=== PATIENT | female | born 1960 | race Caucasian/White ===

== ENCOUNTER 2017-05-29 09:54 | Outpatient (CLI) | payer OTHER ==
[~2017-05-29] VITALS: Ht 167.6 cm; Wt 58.1 kg
[~2017-05-29 09:54] MED LIST: ATOR10TA PO; ATOR10TA66 PO; CARI350T PO; CEPH500C PO; ESTR0.5T PO; ESTR42.52 VG; IBUP-30 PO; IBUP1TAB14 PO; LEVO112T2 PO; LVT.112T PO; METH4TAB PO; PANT20TA2 PO; PANT40TA3 PO
[2017-05-29] MEDS ORDERED: LEVO88TA54 PO (11:15)
[2017-05-29] MEDS ORDERED: LACT1CAP62 PO (11:15)
[2017-05-29] MEDS ORDERED: SUCR1TAB PO (11:15)
[2017-05-30] MEDS ORDERED: DEXL60CA PO (14:31)
== END 2017-05-29 11:16 ==
LOC: PREOP 09:54
PROVIDERS: ATTEND Surgery
DX: Z01.818 Encounter for other preprocedural examination (principal); K21.9 Gastro-esophageal reflux disease without esophagitis

== ENCOUNTER 2017-05-30 10:57 | Day surgery (SDC) | payer BC, OTHER ==
[~2017-05-30] VITALS: Ht 167.6 cm; Wt 58.1 kg
[~2017-05-30 10:57] MED LIST changes: +LACT1CAP62 PO; +LEVO88TA54 PO; +SUCR1TAB PO
[2017-05-30 11:00] VITALS: BP 123/79
[2017-05-30] MEDS: NS IV 500 ML 500 ML IV PRN ×2 (11:10→13:20)
--- NOTE | 2017-05-30 12:13 | Conscious Sedation/ASA ---
Conscious Sedation Pre-Proced Time Reviewed: 12:00 ASA Class: 2 Airway Mallampati Classification: (nulato appropriate class) I. II. III, IV Lungs Heart ASA score ASA 1: a normal healthy patient ASA 2: a patient with a mild systemic disease (mid diabetes, controlled hypertension, obesity ASA 3: a patient with a severe systemic disease that limits activity (angina , COPD, prior Myocardial infarction) ASA 4: a patient with an incapacitating disease that is a constant threat to life (CHF, renal failure) ASA 5: a moribund patient not expected to survive 24 hrs. (ruptured aneurysm) ASA 6: a declared brain patient whose organs are being harvested. For emergent operations, add the letter E after the classification Grade 2 Sedation Plan: Analgesia, Amnesia, Plan communicated to team members, Discussed options with patient/fam, Discussed risks with patient/fam Note The patient is an appropriate candidate to undergo the planned procedure, sedation, and anesthesia. The patient immediately re-assessed prior to indication. ALIREZA PRAJAPATI MD May 30, 2017 12:13 pm
--- NOTE | 2017-05-30 12:14 | Progress Note-Pre Operative ---
Pre-Operative Progress Note H&P Reviewed The H&P was reviewed, patient examined and no changes noted. Date Seen by Provider: May 30, 2017 Time Seen by Provider: 12:00 Date H&P Reviewed: May 30, 2017 Time H&P Reviewed: 12:00 Pre-Operative Diagnosis: ALIREZA BRIGGS MD May 30, 2017 12:14 pm
[2017-05-30] MEDS ORDERED: HYDROcodone/APAP 5 MG/325 MG (LORTAB) TAB PO PRN (12:15)
[2017-05-30] MEDS ORDERED: morphine INJ 10 MG/ML 1ML (SYR OR VIAL) IV PRN (12:15)
[2017-05-30] MEDS ORDERED: ONDANSETRON 4 MG/2 ML (SDV) Z0FRAN IV PRN (12:15)
[2017-05-30] MEDS ORDERED: ACETAMINOPHEN 325 MG TABLET/CAPLET (TYLENOL) PO PRN (12:15)
[2017-05-30] MEDS ORDERED: LIDOCAINE JELLY 2% (XYLOCAINE) 5 ML TUBE ONE (13:08)
[2017-05-30] MEDS ORDERED: HURRICAINE EXT TUBE (BENZOCAINE) ONE (13:09)
[2017-05-30] MEDS ORDERED: fentaNYL INJECTION 100 MCG/2 ML AMP ONE (13:09)
[2017-05-30] MEDS ORDERED: MIDAZOLAM 2 MG/2 ML (VERSED) VIAL ONE ×3 (13:09)
[2017-05-30] MEDS ORDERED: NS IV 500 ML 500 ML ONE (13:21)
[2017-05-30] MEDS: MIDAZOLAM 2 MG/2 ML (VERSED) VIAL IVP PRN ×3 (13:28→13:36)
[2017-05-30] MEDS: fentaNYL INJECTION 100 MCG/2 ML AMP IVP PRN ×2 (13:30→13:35)
[2017-05-30 14:15] VITALS: BP 124/78
[2017-05-30] MEDS ORDERED: HURRICAINE EXT TUBE (BENZOCAINE) XX ONE (14:15)
[2017-05-30] MEDS ORDERED: LIDOCAINE JELLY 2% (XYLOCAINE) 5 ML TUBE TOP ONE (14:15)
--- NOTE | 2017-05-30 14:30 | Progress Note-Post Operative ---
Post-Operative Progess Note Surgeon (s)/Microstrategy Architect Developer (s) Surgeon ALIREZA PRAJAPATI MD Microstrategy Architect Developer: none Pre-Operative Diagnosis GERD Post-Operative Diagnosis reflux esophagitis(class B-C), small-mod HH(2.5cm), moderate gastritis. Procedure & Operative Findings Date of Procedure 05/30/17 Procedure Performed/Findings EGD with bx Anesthesia Type GET Estimated Blood Loss Estimated blood loss (mL): minimal Specimens/Packing Specimens Removed GE jxn, antrum ALIREZA PRAJAPATI MD May 30, 2017 2:30 pm
[2017-05-30] MEDS ORDERED: DEXL60CA PO (14:31)
--- NOTE | 2017-05-30 14:32 | Discharge Inst-Surgical ---
D/C Lap Instructions-KIDO New, Converted, or Re-Newed RX: RX on Chart Follow Up PRN Activity as tolerated High Fiber Diet 25g or more per day Avoid Alcohol, Caffeine, Spicy [place] and [place] foods. Drink 64 fluid oz or more of fluids per day. Symptoms to Report: Fever over 101 degree F, Nausea/Vomiting If any problems/questions: Contact your physician or go to Emergency Room ALIREZA PRAJAPATI MD May 30, 2017 2:32 pm
[2017-05-30 14:45] VITALS: BP 120/74
[2017-05-30 15:00] VITALS: BP 120/74
--- NOTE | 2017-05-30 20:00 | OPERATIVE REPORT ---
DATE OF SERVICE: 05/30/2017 ATTENDING PRIMARY CARE PHYSICIAN: Dr. Denys Cabrales. PREOPERATIVE DIAGNOSES: Epigastric pain and gastroesophageal reflux disease. POSTOPERATIVE DIAGNOSES: Reflux esophagitis between class B and C, small to moderate size hiatal hernia approximately 2 to 2.5 cm in size, and a moderate severity gastritis. PROCEDURE: EGD with biopsy. SURGEON: Dr. Prajapati. ANESTHESIA: Conscious sedation. ESTIMATED BLOOD LOSS: Minimal. FINDINGS: Reflux esophagitis between class B and C. No ulcers or strictures in this region. There was a small to moderate size hiatal hernia 2 to 2.5 cm in size, moderate severity gastritis with no formal ulcers, polyps or any neoplasms identified. Pylorus and duodenum appeared normal with no distal obstructions or ulcers. DISPOSITION: The patient tolerated the procedure well. INDICATIONS: The patient is a 57-year-old female with a two-month history of epigastric burning discomfort with associated nausea. She also has had episodes of reflux and regurgitation in the past; however, this has dramatically increased in the past few months. She also reports because of her symptoms has lost approximately 25 pounds over the past eight months. She was diagnosed with Lyme's disease this past summer and has been adjusting her thyroid medication. She did have a colonoscopy in 2008, which for the most part was normal. She also reports that because of her discomfort, she has had a decrease in appetite. DESCRIPTION OF PROCEDURE: The patient was brought to the endoscopy suite, laid in the left lateral decubitus position with head slightly elevated. After adequate IV pain and sedating medications and conscious sedation anesthesia, a mouthpiece was applied. Endoscope was placed in the mouth, visualizing the pharynx and hypopharyngeal region. Vocal cords, epiglottis and vallecula were identified and appeared to be normal. The endoscope was then gently intubated in the esophageal opening; esophagus was insufflated. The endoscope was then advanced to the first, second and third portions of the esophagus. At the level of the GE junction, a reflux esophagitis between class B and C was identified. There were no ulcers or strictures identified in this region. A biopsy was taken with forceps with visualization of good hemostasis. The endoscope was then easily advanced in the stomach and then endoscope was retroflexed, visualizing a small to moderate size hiatal hernia approximately 2 to 2.5 cm in size. There was a moderate severity gastritis, which was more diffuse and no localization. There were no formal ulcers, polyps or any neoplasms identified. A biopsy was taken of the stomach antrum for H. pylori with visualization of good hemostasis. The endoscope was then advanced to the pylorus and the first and second portions of the duodenum, which appeared normal with no distal obstructions. The endoscope was then slowly withdrawn while taking a second look and suctioning of residual air with no additional findings. The patient tolerated the procedure well. We will have her continue with medical management with the necessary lifestyle and diet accommodation including small and more frequent meals, avoidance of eating at night as well as head elevation while lying supine. She also needs to avoid caffeinated beverages, spicy, greasy and acidic foods. We will also proceed with a trial of Dexilant 60 mg daily, and have her continue with Carafate q.i.d. for another 2 weeks. Job ID: [id number] DocumentID: [id number] Dictated Date: 05/30/2017 14:03:04 Specialty Transformer Assembler Date: 05/30/2017 19:59:44 Dictated By: ALIREZA PRAJAPATI MD
== END 2017-05-30 15:05 | disposition home or self-care (01) ==
LOC: ENDO 10:57
PROVIDERS: ATTEND Surgery
DX: K21.0 Gastro-esophageal reflux disease with esophagitis (principal); K44.9 Diaphragmatic hernia without obstruction or gangrene; K29.70 Gastritis, unspecified, without bleeding; E03.9 Hypothyroidism, unspecified; A69.20 Lyme disease, unspecified; Z79.899 Other long term (current) drug therapy

== ENCOUNTER 2019-04-01 08:55 | Outpatient (CLI) | payer BC ==
[~2019-04-01] VITALS: Ht 167 cm; Wt 55.0 kg
[~2019-04-01 08:55] MED LIST changes: +DEXL60CA PO
[2019-04-01] MEDS ORDERED: LEVO112T55 PO (10:39)
[2019-04-01] MEDS ORDERED: ATOR10TA66 PO (10:39)
[2019-04-01] MEDS ORDERED: LANS30CA PO (10:39)
== END 2019-04-01 11:00 | disposition home or self-care (01) ==
LOC: PREOP 08:55
PROVIDERS: ATTEND Surgery
DX: Z01.818 Encounter for other preprocedural examination (principal)

== ENCOUNTER 2019-04-02 12:57 | Day surgery (SDC) | payer BC ==
[~2019-04-02] VITALS: Ht 167 cm; Wt 55.0 kg
[2019-04-02] VITALS (15 sets, daily range): BP systolic 82–145; BP diastolic 46–81
[~2019-04-02 12:57] MED LIST changes: -HYDR-4226 PO; -PROM25TA14 PO
[2019-04-02] MEDS ORDERED: NS IV 500 ML 500 ML ONE ×2 (13:03→15:39)
[2019-04-02] MEDS ORDERED: LIDOCAINE JELLY 2% 6 ML SYRINGE MM PRN (13:15)
[2019-04-02] MEDS ORDERED: HURRICAINE EXT TUBE (BENZOCAINE) XX PRN (13:15)
[2019-04-02] MEDS ORDERED: fentaNYL INJECTION 100 MCG/2 ML AMP IVP ONE (13:15)
[2019-04-02] MEDS: NS IV 500 ML 500 ML IV PRN ×2 (13:42→15:45)
[2019-04-02] MEDS ORDERED: MIDAZOLAM 5 MG/5 ML (VERSED) VIAL ONE ×3 (14:36→15:34)
[2019-04-02] MEDS ORDERED: LIDOCAINE JELLY 2% 6 ML SYRINGE ONE (14:37)
[2019-04-02] MEDS ORDERED: HURRICAINE EXT TUBE (BENZOCAINE) ONE (14:37)
[2019-04-02] MEDS ORDERED: fentaNYL INJECTION 100 MCG/2 ML AMP ONE ×2 (14:37)
[2019-04-02] MEDS: MIDAZOLAM 5 MG/5 ML (VERSED) VIAL IV PRN ×8 (15:08→15:28)
[2019-04-02] MEDS ORDERED: ONDANSETRON 4 MG/2 ML (SDV) Z0FRAN ONE (15:20)
[2019-04-02] MEDS ORDERED: ONDANSETRON 4 MG/2 ML (SDV) Z0FRAN IVP ONE (16:30)
--- NOTE | 2019-04-02 19:19 | OPERATIVE REPORT ---
DATE OF SERVICE: 04/02/2019 ATTENDING PRIMARY CARE PHYSICIAN: Dr. Cabrales. PREOPERATIVE DIAGNOSES: Crampy abdominal pain, nausea, reflux, screening colonoscopy, weight loss. POSTOPERATIVE DIAGNOSES: Reflux esophagitis stage II, moderate size hiatal hernia approximately 3 cm in size. Mild gastritis. No distal obstructions. Mild chronic stage II external and internal hemorrhoids. Remainder of the rectum and colon were normal. PROCEDURE: EGD with biopsy and colonoscopy. SURGEON: Alireza Prajapati MD ANESTHESIA: Conscious sedation. ESTIMATED BLOOD LOSS: Minimal. FINDINGS: Reflux esophagitis stage II, moderate size hiatal hernia approximately 3 cm in size. Mild gastritis. No distal obstructions. Mild chronic stage II external and internal hemorrhoids. Remainder of the rectum and colon were normal. DISPOSITION: The patient tolerated the procedure well. INDICATIONS: The patient is a 59-year-old female with nausea and epigastric pain. She reports that this has been going on for the past several days; however, she has had a history of this in the past. She also reports that in the past and more recently, she has had a headache; however, no change in bowel habits. During this timeframe, she does state that she lost approximately 5 pounds. She has had an EGD in 05/2017 and was found to have a hiatal hernia, approximately 2.5 cm in size. Her last colonoscopy was approximately 10 years ago as well. Since being diagnosed with Lyme's disease two years ago, she has lost approximately 25 pounds. DESCRIPTION OF PROCEDURE: The patient was brought to the endoscopy suite, laid in the left lateral decubitus position. After adequate IV pain and sedative medications and conscious sedation anesthesia, the mouthpiece was applied. The endoscope was placed in the mouth, visualizing the pharynx and hypopharyngeal region. Vocal cords, epiglottis and vallecula identified and appeared to be normal. The endoscope was then gently intubated the esophageal opening and esophagus was insufflated. The endoscope was then advanced through the first, second and third portions of the esophagus. At the level of the GE junction, a reflux esophagitis stage II identified. The gastroesophageal junction was also intrathoracic consistent with a hiatal hernia. A biopsy was taken of the GE junction with forceps. The endoscope was then advanced into the stomach and endoscope retroflexed, visualizing a moderate sized hiatal hernia approximately 3 cm in size. Mild gastritis was also noted and a biopsy was taken of the antrum to rule out H. pylori. The endoscope was then advanced to the pylorus and the first and second portion of the duodenum, which appeared normal with no distal obstructions. Under the same anesthesia, we then proceeded with the colonoscopy portion of the procedure. Digital rectal examination was performed, which revealed chronic stage II external and internal hemorrhoids, not actively edematous nor inflamed and no bleeding. Normal sphincter tone was felt and there were no palpable masses. The endoscope was then intubated into the anus and rectum was gently insufflated. The endoscope was then advanced to the valves of [place] of the rectum with no polyps or any neoplasms identified. We then proceeded through the sigmoid colon where no significant diverticulosis was identified. The endoscope was then advanced to the remainder of the descending, transverse and ascending colon to the cecum. These segments were normal. There were no polyps or any neoplasms identified throughout the colon or rectum. Endoscope was then slowly withdrawn while taking a second look and suctioning of residual air with no additional findings. The patient tolerated the procedure well. We feel that her symptoms could be related to the hiatal hernia and we will again treat her and proceed with conservative management with the necessary lifestyle and diet accommodation including small and more frequent meals, avoidance of eating at night as well as head elevation while lying supine. She states that she has taken Protonix before and that helped more with her symptoms. We will also proceed with a gallbladder workup including an u/s as well as HIDA scan. Her colonoscopy was normal and she does not have any family history of colon cancer. She may wait 10 years for her next colonoscopy. Job ID: [id number] DocumentID: [id number] Dictated Date: 04/02/2019 15:49:00 Insurance Agents Supervisor Date: 04/02/2019 19:18:27 Dictated By: ALIREZA PRAJAPATI MD MTDD
--- NOTE | 2019-04-02 21:38 | Conscious Sedation/ASA ---
Conscious Sedation Pre-Proced Time 13:00 ASA Score 2 For ASA 3 and 4: Consider anesthesia and medical clearance. Also, for patients with a history of failed moderate sedation consider anesthesia. Airway Lungs Heart ASA score ASA 1: a normal healthy patient ASA 2: a patient with a mild systemic disease (mid diabetes, controlled hypertension, obesity ASA 3: a patient with a severe systemic disease that limits activity (angina, COPD, prior Myocardial infarction) ASA 4: a patient with an incapacitating disease that is a constant threat to life (CHF, renal failure) ASA 5: a moribund patient not expected to survive 24 hrs. (ruptured aneurysm) ASA 6: a declared brain- patient whose organs are being harvested. For emergent operations, add the letter E after the classification Mallampati Classification Grade 2 Sedation Plan Analgesia, Amnesia, Plan communicated to team members, Discussed options with patient/fam, Discussed risks with patient/fam The patient is an appropriate candidate to undergo the planned procedure, sedation, and anesthesia. The patient immediately re-assessed prior to indication. ALIREZA PRAJAPATI MD Apr 02, 2019 21:38
--- NOTE | 2019-04-02 21:39 | Progress Note-Pre Operative ---
Pre-Operative Progress Note H&P Reviewed The H&P was reviewed, patient examined and no changes noted. Date Seen by Provider: Apr 02, 2019 Time Seen by Provider: 13:00 Date H&P Reviewed: Apr 02, 2019 Time H&P Reviewed: 13:00 Pre-Operative Diagnosis: GERD, nausea, abd pain, weight loss, screening colo ALIREZA PRAJAPATI MD Apr 02, 2019 21:39
--- NOTE | 2019-04-02 21:45 | Progress Note-Post Operative ---
Post-Operative Progess Note Surgeon (s)/Pet Feeder (s) Surgeon ALIREZA PRAJAPATI MD Pet Feeder: none Pre-Operative Diagnosis GERD, nausea, abd pain, weight loss, screening colo Post-Operative Diagnosis reflux esophagitis(stage 2), moderate HH(3cm), moderate gastirits. mild chronic stage 2 ext and int hemorroids. Procedure & Operative Findings Date of Procedure 04/02/19 Procedure Performed/Findings EGD with bx. Colonoscopy. Anesthesia Type cs Estimated Blood Loss Estimated blood loss (mL): minimal Specimens/Packing Specimens Removed ge jxn, antrum ALIREZA PRAJAPATI MD Apr 02, 2019 21:45
[2019-04-03] MEDS ORDERED: HYDR-4226 PO (17:08)
[2019-04-03] MEDS ORDERED: PROM25TA14 PO (17:08)
== END 2019-04-02 16:45 | disposition home or self-care (01) ==
LOC: ENDO 12:57
PROVIDERS: ATTEND Surgery
DX: K21.0 Gastro-esophageal reflux disease with esophagitis (principal); K29.50 Unspecified chronic gastritis without bleeding; K44.9 Diaphragmatic hernia without obstruction or gangrene; K64.1 Second degree hemorrhoids; K64.8 Other hemorrhoids; R63.4 Abnormal weight loss; E03.9 Hypothyroidism, unspecified; Z90.89 Acquired absence of other organs; Z79.899 Other long term (current) drug therapy; Z90.710 Acquired absence of both cervix and uterus; Z80.0 Family history of malignant neoplasm of digestive organs; Z82.49 Family history of ischemic heart disease and other diseases of the circulatory system

== ENCOUNTER → 2019-04-02 | Outpatient (CLI) | payer BC ==
[~2019-04-02] MED LIST changes: +HYDR-4226 PO; +LANS30CA PO; +LEVO112T55 PO; +PROM25TA14 PO
--- NOTE | 2019-04-02 11:51 | Diagnostic Imaging Report ---
PROCEDURE: US Gallbladder. TECHNIQUE: Multiple real-time grayscale images were obtained over the right upper quadrant in various projections. INDICATION: Right upper quadrant pain COMPARISON: There are no prior studies available for comparison. FINDINGS: There is no evidence for cholelithiasis or acute cholecystitis and the common bile duct is not dilated. The liver does not appear to be enlarged. There is no focal mass involving the liver. Spectral and color flow imaging the portal vein shows that the vein is patent and there is normal directional flow within the vein. The right kidney and pancreas were generally unremarkable. The aorta and the inferior vena cava were not well visualized. IMPRESSION: 1. There is no evidence for an acute abnormality of the right upper quadrant. 2. If clinical concern regarding an underlying abnormality of the gallbladder persists and further imaging is desired, then nuclear medicine hepatobiliary scan would be recommended. Dictated by: Dictated on workstation # [id number]
== END ==
LOC: RAD 06:31
PROVIDERS: ATTEND Surgery
DX: R10.11 Right upper quadrant pain (principal); R11.2 Nausea with vomiting, unspecified
CPT/HCPCS: 76705

== ENCOUNTER 2019-04-03 13:42 | Emergency (ER) | payer BC ==
[~2019-04-03] VITALS: Ht 167 cm; Wt 55.0 kg
[2019-04-03] MEDS ORDERED: LIDOCAINE 2% VISCOUS 15 ML UDC PO ONE (14:45)
[2019-04-03] MEDS ORDERED: ANTACID SUSP 30 ML UDC (MYLANTA) PO ONE (14:45)
[2019-04-03 14:47] LABS: BASOPHILS % (AUTO) 0 % (0-10); EOSINOPHILS % (AUTO) 0 % (0-10); HEMATOCRIT 39 % (35-52); HEMOGLOBIN 13.2 G/DL (11.5-16.0); LYMPHOCYTES # (AUTO) 1.4 X 10^3 (1.0-4.0); LYMPHOCYTES % (AUTO) 22 % (12-44); MEAN CORPUSCULAR HEMOGLOBIN 32 PG (25-34); MEAN CORPUSCULAR HGB CONC 34 G/DL (32-36); MEAN CORPUSCULAR VOLUME 94 FL (80-99); MEAN PLATELET VOLUME 9.3 FL (7.4-10.4); MONOCYTES # (AUTO) 0.6 X 10^3 (0.0-1.0); MONOCYTES % (AUTO) 9 % (0-12); NEUTROPHILS # (AUTO) 4.4 X 10^3 (1.8-7.8); NEUTROPHILS % (AUTO) 68 % (42-75); PLATELET COUNT 241 10^3/uL (130-400); RED CELL DISTRIBUTION WIDTH 11.7 % (10.0-14.5); WHITE BLOOD COUNT 6.4 10^3/uL (4.3-11.0)
--- NOTE | 2019-04-03 14:50 | ED Abdominal Pain ---
General Chief Complaint: Abdominal/GI Problems Stated Complaint: STOMACH PAIN/NOT EATING/ Nursing Triage Note: thinks she is having gallbladder issues, had a sonogram and a scope done yesterday, Dr Abdi stated to pt that he thinks she has a bad gallbladder but would not have results until friday, pt continues to have pain, nausea Sepsis Screen: No Definite Risk Source of Information: Patient Exam Limitations: No Limitations History of Present Illness Date Seen by Provider: Apr 03, 2019 Time Seen by Provider: 14:47 Initial Comments To ER per private vehicle with reports of suspected bad gallbladder. She's had some epigastric abdominal pain with early satiety nausea vomiting and pain for about the past week. She's had intermittent loose stools and had a colonoscopy and EGD yesterday which did show some mild gastritis and grade 2 reflux esophagitis. She had an unremarkable right upper quadrant abdominal ultrasound and is scheduled for a hepatobiliary scan in 2-3 weeks. Timing/Duration: 1 Week Severity/Quality: Moderate Location: Epigastric Radiation: No Radiation Associated Symptoms: No Fever/Chills; Nausea/Vomiting Allergies and Home Medications Allergies Coded Allergies: No Known Drug Allergies (Unverified , 04/01/19) Home Medications Atorvastatin Calcium 10 Mg Tablet, 10 MG PO HS, (Reported) Hydrocodone/Acetaminophen 1 Each Tablet, 1 TAB PO Q6H Prescribed by: YOSEPH PÉREZ on 04/03/191707 Lansoprazole 30 Mg Capsule.dr, 30 MG PO DAILY, (Reported) Levothyroxine Sodium 112 Mcg Tablet, 112 MCG PO DAILY, (Reported) Promethazine HCl 25 Mg Tablet, 12.5-25 MG PO Q8H PRN for NAUSEA/VOMITING Prescribed by: YOSEPH PÉREZ on 04/03/191707 Sucralfate 1 Gm Tablet, 1 GM PO QID, (Reported) Patient Home Medication List Home Medication List Reviewed: Yes Review of Systems Review of Systems Constitutional: see HPI; No chills, No fever EENTM: No Symptoms Reported Respiratory: No Symptoms Reported Cardiovascular: No Symptoms Reported Gastrointestinal: See HPI, Abdominal Pain, Nausea, Vomiting Genitourinary: No Symptoms Reported Musculoskeletal: no symptoms reported Skin: no symptoms reported Psychiatric/Neurological: No Symptoms Reported Endocrine: No Symptoms Reported Hematologic/Lymphatic: No Symptoms Reported Past Mlsxvla-Aycdwe-Dgqjly Hx Patient Social History Alcohol Use: Denies Use Recreational Drug Use: No 2nd Hand Smoke Exposure: No Recent Foreign Travel: No Contact w/Someone Who Travel: No Recent Infectious Disease Expo: No Recent Hopitalizations: No Immunizations Up To Date Tetanus Booster (TDap): Unknown Seasonal Allergies Seasonal Allergies: No Past Medical History Surgeries: Yes (KNEE SURGERY) Appendectomy, Hysterectomy, Oophorectomy, Orthopedic Respiratory: No Currently Using CPAP: No Currently Using BIPAP: No Cardiac: Yes High Cholesterol Neurological: No Reproductive Disorders: No Female Reproductive Disorders: Denies CLERICAL SUPERVISOR History: Hysterectomy Sexually Transmitted Disease: No HIV/AIDS: No Genitourinary: No Gastrointestinal: Yes (N/V) Gastroesophageal Reflux Musculoskeletal: No Endocrine: Yes Hypothyroidsim HEENT: Yes (GLASSES) Loss of Vision: Denies Hearing Impairment: Denies Cancer: No Psychosocial: No Integumentary: No Blood Disorders: No Adverse Reaction/Blood Tranf: No (N/A) Family Medical History Congenital heart disease 19 MOTHER, Onset:60 years & older Physical Exam Vital Signs Vital Signs - First Documented 04/03/19 14:19 Temp 36.9 Pulse 73 Resp 18 B/P (MAP) 146/82 (103) Pulse Ox 99 O2 Delivery Room Air Capillary Refill : Less Than 3 Seconds Height/Weight/BMI Height: 5'6.00" Weight: 128lbs. 0.0oz. 58.277831lc; 19.00 BMI Method:Stated General Appearance: WD/WN, no apparent distress Respiratory: no respiratory distress, no accessory muscle use Gastrointestinal: normal bowel sounds, soft, tenderness Extremities: normal range of motion, non-tender Neurologic/Psychiatric: alert, normal mood/affect, oriented x 3 Skin: normal color, warm/dry Progress/Results/Core Measures Results/Orders Lab Results Laboratory Tests Test 04/03/19 14:40 04/03/19 16:50 Range/Units White Blood Count 6.4 4.3-11.0 10^3/uL Red Blood Count 4.12 L 4.35-5.85 10^6/uL Hemoglobin 13.2 11.5-16.0 G/DL Hematocrit 39 35-52 % Mean Corpuscular Volume 94 80-99 FL Mean Corpuscular Hemoglobin 32 25-34 PG Mean Corpuscular Hemoglobin Concent 34 32-36 G/DL Red Cell Distribution Width 11.7 10.0-14.5 % Platelet Count 241 130-400 10^3/uL Mean Platelet Volume 9.3 7.4-10.4 FL Neutrophils (%) (Auto) 68 42-75 % Lymphocytes (%) (Auto) 22 12-44 % Monocytes (%) (Auto) 9 0-12 % Eosinophils (%) (Auto) 0 0-10 % Basophils (%) (Auto) 0 0-10 % Neutrophils # (Auto) 4.4 1.8-7.8 X 10^3 Lymphocytes # (Auto) 1.4 1.0-4.0 X 10^3 Monocytes # (Auto) 0.6 0.0-1.0 X 10^3 Eosinophils # (Auto) 0.0 0.0-0.3 10^3/uL Basophils # (Auto) 0.0 0.0-0.1 10^3/uL Sodium Level 134 L 135-145 MMOL/L Potassium Level 3.7 3.6-5.0 MMOL/L Chloride Level 102 98-107 MMOL/L Carbon Dioxide Level 23 21-32 MMOL/L Anion Gap 9 5-14 MMOL/L Blood Urea Nitrogen 7 7-18 MG/DL Creatinine 0.63 0.60-1.30 MG/DL Estimat Glomerular Filtration Rate > 60 BUN/Creatinine Ratio 11 Glucose Level 132 H 70-105 MG/DL Calcium Level 9.2 8.5-10.1 MG/DL Corrected Calcium 8.9 8.5-10.1 MG/DL Total Bilirubin 0.4 0.1-1.0 MG/DL Aspartate Amino Transf (AST/SGOT) 16 5-34 U/L Alanine Aminotransferase (ALT/SGPT) 14 0-55 U/L Alkaline Phosphatase 56 40-136 U/L Total Protein 6.9 6.4-8.2 GM/DL Albumin 4.4 3.2-4.5 GM/DL Lipase 22 8-78 U/L Urine Color STRAW Urine Clarity CLEAR Urine pH 8 5-9 Urine Specific [place] 1.015 L 1.016-1.022 Urine Protein NEGATIVE NEGATIVE Urine Glucose (UA) NEGATIVE NEGATIVE Urine Ketones NEGATIVE NEGATIVE Urine Nitrite NEGATIVE NEGATIVE Urine Bilirubin NEGATIVE NEGATIVE Urine Urobilinogen NORMAL NORMAL MG/DL Urine Leukocyte Esterase NEGATIVE NEGATIVE Urine RBC (Auto) NEGATIVE NEGATIVE Urine RBC NONE /HPF Urine WBC NONE /HPF Urine Squamous Epithelial Cells 0-2 /HPF Urine Crystals NONE /LPF Urine Bacteria NEGATIVE /HPF Urine Casts NONE /LPF Urine Mucus NEGATIVE /LPF Urine Culture Indicated NO My Orders Orders - YOSEPH PÉREZ APRN Antacid Suspension (Mylanta Suspension (04/03/19 14:45) Lidocaine 2% Viscous 15 Ml (Xylocaine Vi (04/03/19 14:45) Ns Iv 1000 Ml (Sodium Chloride 0.9%) (04/03/19 15:00) Promethazine Injection (Phenergan Injec (04/03/19 15:00) Ct Abdomen/Pelvis W (04/03/19 14:51) Medications Given in ED Current Medications Medications Dose Ordered Sig/Louie Route Start Time Stop Time Status Last Admin Dose Admin Al Hydrox/Mg Hydrox/Simethicone 30 ml ONCE ONCE PO 04/03/19 14:45 04/03/19 14:46 DC 04/03/19 14:40 30 ML Iohexol 100 ml ONCE ONCE IV 04/03/19 15:00 04/03/19 15:54 DC 04/03/19 16:07 100 ML Lidocaine HCl 15 ml ONCE ONCE PO 04/03/19 14:45 04/03/19 14:46 DC 04/03/19 14:40 15 ML Promethazine HCl 12.5 mg ONCE ONCE IVP 04/03/19 15:00 04/03/19 15:01 DC 04/03/19 15:01 12.5 MG Sodium Chloride 100 ml ONCE ONCE IV 04/03/19 15:00 04/03/19 15:54 DC 04/03/19 16:08 100 ML Vital Signs/I&O 04/03/19 14:19 Temp 36.9 Pulse 73 Resp 18 B/P (MAP) 146/82 (103) Pulse Ox 99 O2 Delivery Room Air Blood Pressure Mean: 103 Diagnostic Imaging Diagonstic Imaging: CT Comments NAME: JHONATAN CORRAL [facility] REC#: [id number] PT STATUS: REG ER : 1960 PHYSICIAN: YOSEPH PÉREZ APRN ADMIT DATE: 04/03/19/ER Draft Date of Exam:04/03/19 CT ABDOMEN/PELVIS W PROCEDURE: CT abdomen and pelvis with contrast. TECHNIQUE: Multiple contiguous axial images were obtained through the abdomen and pelvis after administration of intravenous contrast. Auto Exposure Controls were utilized during the CT exam to meet ALARA standards for radiation dose reduction. INDICATION: Upper abdominal pain with nausea for one week. COMPARISON: Gallbladder ultrasound, 04/02/2019. DISCUSSION: The lung bases are well-aerated. Normal heart size. No pleural or pericardial fluid. The gallbladder is contracted. The liver, stomach, spleen, pancreas and adrenal glands are unremarkable. Benign-appearing 3.5 cm cyst is present within the left kidney. No hydronephrosis or solid renal mass. The aorta is normal in caliber. The uterus is surgically absent. Urinary bladder is unremarkable. No evidence for appendicitis. The large and small bowel loops appear within normal limits. No ascites or pathologically enlarged lymph nodes are identified. No osseous abnormality. IMPRESSION: No acute abnormality identified within either the abdomen or pelvis. Dictated on workstation # [id number] Dict: 04/03/19 1617 Trans: 04/03/19 1620 PJE [id number] Interpreted by: MISTI BRANCH MD Electronically signed by: Departure Communication (Admissions) After the GI cocktail she no longer has a sensation of epigastric fullness, no epigastric pain and the nausea is still somewhat present but overall improved. Impression Primary Impression: Gastritis Qualified Codes: K29.00 - Acute gastritis without bleeding Additional Impression: Hiatal hernia Disposition: HOME, SELF-CARE Condition: Stable Departure-Patient Inst. Decision time for Depature: 16:23 Referrals: VENESSA CHAPIN MD (PCP/Family) Primary Care Physician Patient Instructions: Hiatal Hernia Add. Discharge Instructions: 1. Return to ER for any concerns 2. Follow-up with your doctor 3. All discharge instructions reviewed with patient and/or family. Voiced understanding. Scripts Hydrocodone/Acetaminophen ([place] 5-325 Tablet) 1 Each Tablet 1 TAB PO Q6H for Pain MDD 10 TABS for 7 Days, #10 TAB Prov: YOSEPH PÉREZ APRN 04/03/19 Promethazine HCl (Promethazine Tablet) 25 Mg Tablet 12.5-25 MG PO Q8H PRN for NAUSEA/VOMITING, #14 TAB 0 Refills Prov: YOSEPH PÉREZ APRN 04/03/19 Copy Copies To 1: ALIREZA PRAJAPATI MD, PETER J APRN Apr 03, 2019 14:50
[2019-04-03] MEDS ORDERED: PROMETHAZINE INJ 25 MG/ML (PHENERGAN) AMP IVP ONE (15:00)
[2019-04-03] MEDS ORDERED: IOHEXOL 350 MG/ML 100 ML (OMNIPAQUE 350) VIAL IV ONE (15:00)
[2019-04-03] MEDS ORDERED: HOLD METFORMIN - RECEIVED CONTRAST 20 ML VIAL IV SCH (15:00)
[2019-04-03] MEDS ORDERED: NS IV 1000 ML 1,000 ML IV SCH (15:00)
[2019-04-03] MEDS ORDERED: NS 100 ML (IVPB) BAG IV ONE (15:00)
[2019-04-03 15:09] LABS: ALANINE AMINOTRANSFERASE 14 U/L (0-55); ALBUMIN 4.4 GM/DL (3.2-4.5); ALKALINE PHOSPHATASE 56 U/L (40-136); BILIRUBIN,TOTAL 0.4 MG/DL (0.1-1.0); BUN/CREATININE RATIO 11; CALCIUM 9.2 MG/DL (8.5-10.1); CARBON DIOXIDE 23 MMOL/L (21-32); CHLORIDE 102 MMOL/L (98-107); CREATININE SERUM 0.63 MG/DL (0.60-1.30); GFR ESTIMATED > 60; GLUCOSE 132 MG/DL (70-105); LIPASE 22 U/L (8-78); POTASSIUM 3.7 MMOL/L (3.6-5.0); SODIUM 134 MMOL/L (135-145); TOTAL PROTEIN 6.9 GM/DL (6.4-8.2)
--- NOTE | 2019-04-03 16:21 | Diagnostic Imaging Report ---
PROCEDURE: CT abdomen and pelvis with contrast. TECHNIQUE: Multiple contiguous axial images were obtained through the abdomen and pelvis after administration of intravenous contrast. Auto Exposure Controls were utilized during the CT exam to meet ALARA standards for radiation dose reduction. INDICATION: Upper abdominal pain with nausea for one week. COMPARISON: Gallbladder ultrasound, 04/02/2019. DISCUSSION: The lung bases are well-aerated. Normal heart size. No pleural or pericardial fluid. The gallbladder is contracted. The liver, stomach, spleen, pancreas and adrenal glands are unremarkable. Benign-appearing 3.5 cm cyst is present within the left kidney. No hydronephrosis or solid renal mass. The aorta is normal in caliber. The uterus is surgically absent. Urinary bladder is unremarkable. No evidence for appendicitis. The large and small bowel loops appear within normal limits. No ascites or pathologically enlarged lymph nodes are identified. No osseous abnormality. IMPRESSION: No acute abnormality identified within either the abdomen or pelvis. Dictated by: Dictated on workstation # [id number]
[2019-04-03 16:57] LABS: BILIRUBIN,URINE NEGATIVE (NEGATIVE); CLARITY,URINE CLEAR; GLUCOSE, URINE (UA) NEGATIVE (NEGATIVE); KETONES,URINE NEGATIVE (NEGATIVE); LEUKOCYTE ESTERASE ,URINE NEGATIVE (NEGATIVE); NITRITE,URINE NEGATIVE (NEGATIVE); PH,URINE 8 (5-9); PROTEIN,URINE NEGATIVE (NEGATIVE); UROBILINOGEN,URINE NORMAL (NORMAL)
[2019-04-03 16:59] LABS: COLOR,URINE STRAW
[2019-04-03 17:03] LABS: BACTERIA,URINE NEGATIVE /HPF; SQUAMOUS EPITHELIAL CELL,UR 0-2 /HPF
[2019-04-03] MEDS ORDERED: PROM25TA14 PO (17:08)
[2019-04-03] MEDS ORDERED: HYDR-4226 PO (17:08)
[2019-04-03 17:31] VITALS: BP 136/79
== END 2019-04-03 17:31 | disposition home or self-care (01) ==
LOC: EDUNIT# 13:42 → ER 13:44
DX: K29.00 Acute gastritis without bleeding (principal); K44.9 Diaphragmatic hernia without obstruction or gangrene; E78.00 Pure hypercholesterolemia, unspecified; K21.9 Gastro-esophageal reflux disease without esophagitis; E03.9 Hypothyroidism, unspecified; Z90.49 Acquired absence of other specified parts of digestive tract; Z90.710 Acquired absence of both cervix and uterus; Z82.49 Family history of ischemic heart disease and other diseases of the circulatory system
CPT/HCPCS: 36415; 74177; 80053; 81000; 83690; 85025

== ENCOUNTER → 2019-04-07 | Outpatient (CLI) | payer BC ==
[~2019-04-07] MED LIST changes: +CATHETER FLUSH 10 ML SYR IV PRN; +HYDR-4226 PO; +PROM25TA14 PO
--- NOTE | 2019-04-07 12:59 | Diagnostic Imaging Report ---
INDICATION: Right upper quadrant pain. TECHNIQUE: The patient was administered 5.2 mCi of technetium 99m Choletec intravenously and imaging over the abdomen was performed. After 60 minutes, the patient ingested 1 can of Ensure and the gallbladder ejection fraction was calculated. FINDINGS: There is homogeneous uptake of activity by the liver. Prompt excretion of activity into the gallbladder and common duct is noted. There is normal passage of activity into the small bowel. The gallbladder ejection fraction is normal at 48%. IMPRESSION: Normal HIDA scan and gallbladder ejection fraction. Dictated by: Dictated on workstation # [id number]
== END ==
LOC: CARD 09:31
PROVIDERS: ATTEND Surgery
DX: R10.11 Right upper quadrant pain (principal); R11.2 Nausea with vomiting, unspecified
CPT/HCPCS: 78227

== ENCOUNTER 2020-03-01 10:09 | Outpatient (CLI) | payer BC ==
[~2020-03-01] VITALS: Ht 167.7 cm; Wt 57.3 kg
[~2020-03-01 10:09] MED LIST changes: -CATHETER FLUSH 10 ML SYR IV PRN
[2020-03-01] MEDS ORDERED: PANT40TA3 PO (11:35)
[2020-03-02] MEDS ORDERED: ACHD5005 PO (10:52)
== END 2020-03-01 11:50 ==
LOC: PREOP 10:09
PROVIDERS: ATTEND Surgery
DX: Z01.818 Encounter for other preprocedural examination (principal)

== ENCOUNTER 2020-03-02 09:48 | Day surgery (SDC) | payer BC ==
[~2020-03-02] VITALS: Ht 167.7 cm; Wt 57.3 kg
[2020-03-02] VITALS (13 sets, daily range): BP systolic 107–126; BP diastolic 61–83
--- NOTE | 2020-03-02 05:02 | HISTORY AND PHYSICAL ---
DATE OF SERVICE: DATE OF ADMISSION: 03/02/2020. HISTORY OF PRESENT ILLNESS: The patient is a 60 year old female known to us. She has had a longstanding history of reflux, which progressed to regurgitation and was also not feeling well and had loss of appetite. She was placed on PPI, acid reducers as well as Carafate. We had done an EGD on her in 2016 where she was found to have a reflux esophagitis between stage II and III as well as a moderate size hiatal hernia approximately 2.5 cm in size. She also did develop a contract Lyme's disease and was treated with doxycycline and over that time frame did lose a significant amount of weight. We had done a repeat EGD as well as colonoscopy in 03/2019, which again did show the hiatal hernia. She had also developed a new issue with pain in the right upper abdominal quadrant as well as nausea after eating as well as bloating. We had her do a HIDA scan with ejection fraction, which did show an ejection fraction of 48%; however, she did have reproduction of symptoms with abdominal bloating as well as nausea after the administration of a Kinevac analogue. We did offer her a cholecystectomy at that time; however, due to the time of year and a work, she wanted to delay this. At this time, she states that she has had worsening and more frequent episodes of bloating and nausea after eating meals, especially that are greasy. This is consistent with a symptomatic biliary dyskinesia. PAST MEDICAL HISTORY: Lyme's disease, hypothyroid, gastroesophageal reflux disease, hiatal hernia, biliary dyskinesia. PAST SURGICAL HISTORY: Complete hysterectomy and appendectomy 1990, right knee arthroscopy in 2008. ALLERGIES: No known drug allergies. MEDICATIONS: Levothyroxine 112 mcg daily, Protonix 40 mg daily, Carafate 1 gram b.i.d., atorvastatin 10 mg daily. SOCIAL HISTORY: Negative smoke, negative alcohol. FAMILY HISTORY: Mother, CHF. Father oropharyngeal cancer diagnosed in his 60s. VITAL SIGNS: Blood pressure 110/50, current weight 127.7 pounds at 5 feet 6 inches. REVIEW OF SYSTEMS: Well-nourished female, in no acute distress. She is not experiencing any shortness of breath or difficulty breathing. No chest pain, palpitations, diaphoresis. Intermittent episodes of nausea and abdominal bloating in the epigastric region after eating meals. No vomiting. No hematemesis, no coffee ground emesis. No diarrhea, constipation, no red blood per rectum, no dark tarry stools. No fever, chills, no recent inadvertent weight loss. All other review of systems negative. PHYSICAL EXAMINATION: CHEST: Clear. Good breath sounds bilaterally. HEART: Regular, no murmurs. EXTREMITIES: No lower extremity edema, negative Homans sign. HEENT: No scleral icterus or cervical lymphadenopathy. ABDOMEN: Soft, nondistended with pain in the right upper abdominal quadrant upon deep palpation. No palpable masses. No hernias. SKIN: Warm, dry. ASSESSMENT AND PLAN: A 60 year old female with symptomatic biliary dyskinesia. The natural history of gallbladder disease was explained to the patient including the risks and benefits of surgery and she is in full understanding of this and would like to proceed with cholecystectomy, which we will schedule. Job ID: [id number] DocumentID: [id number] Dictated Date: 02/29/2020 17:31:25 Hospital Educator Date: 02/29/2020 17:48:33 Dictated By: LAIREZA PRAJAPATI MD MTDD
[2020-03-02] MEDS ORDERED: LACTATED RINGERS 1,000 ML IV PRN (09:59)
[2020-03-02] MEDS ORDERED: ceFAZolin INJECTION 1,000 MG in WATER (STERILE) FOR INJECTION 10 ML IV ONE (10:00)
[2020-03-02] MEDS ORDERED: SCOPOLAMINE 1.5 MG (TRANSDERM-SCOP) PATCH TD ONE (10:00)
--- NOTE | 2020-03-02 10:50 | Progress Note-Pre Operative ---
Pre-Operative Progress Note H&P Reviewed The H&P was reviewed, patient examined and no changes noted. Date Seen by Provider: Mar 02, 2020 Time Seen by Provider: 10:30 Date H&P Reviewed: Mar 02, 2020 Time H&P Reviewed: 10:30 Pre-Operative Diagnosis: symptomatic biliary dyskinesia ALIREZA PRAJAPATI MD Mar 02, 2020 10:50
[2020-03-02] MEDS ORDERED: ACHD5005 PO (10:52)
--- NOTE | 2020-03-02 10:52 | Discharge Inst-Surgical ---
D/C Lap Instructions-VICTORINA New, Converted, or Re-Newed RX: RX on Chart Follow Up Appt in 2 weeks Activity as tolerated No driving for 24 hours No driving while on pain medications Incentive Spirometry use every 2 hours while awake Regular Diet Symptoms to Report: Fever over 101 degree F, Nausea/Vomiting Infection Signs and Symptoms to report: Increased redness, Foul odor of wound, Increased drainage Bathing instructions: May shower Operative Area Clean/Dry; Keep incision clean/dry If any problems/questions: Contact your physician or go to Emergency Room ALIREZA PRAJAPATI MD Mar 02, 2020 10:52
[2020-03-02 10:55] LABS: BASOPHILS % (AUTO) 1 % (0-10); EOSINOPHILS # (AUTO) 0.1 10^3/uL (0.0-0.3); EOSINOPHILS % (AUTO) 2 % (0-10); HEMATOCRIT 40 % (35-52); HEMOGLOBIN 13.7 G/DL (11.5-16.0); LYMPHOCYTES # (AUTO) 1.4 X 10^3 (1.0-4.0); LYMPHOCYTES % (AUTO) 31 % (12-44); MEAN CORPUSCULAR HEMOGLOBIN 33 PG (25-34); MEAN CORPUSCULAR HGB CONC 34 G/DL (32-36); MEAN CORPUSCULAR VOLUME 95 FL (80-99); MEAN PLATELET VOLUME 10.5 FL (7.4-10.4); MONOCYTES # (AUTO) 0.4 X 10^3 (0.0-1.0); MONOCYTES % (AUTO) 9 % (0-12); NEUTROPHILS # (AUTO) 2.6 X 10^3 (1.8-7.8); NEUTROPHILS % (AUTO) 57 % (42-75); PLATELET COUNT 255 10^3/uL (130-400); WHITE BLOOD COUNT 4.5 10^3/uL (4.3-11.0)
[2020-03-02] MEDS ORDERED: FAMOTIDINE 20MG/2ML IV (PEPCID) ONE (10:57)
[2020-03-02] MEDS ORDERED: ONDANSETRON 4 MG/2 ML (SDV) Z0FRAN IVP PRN ×2 (11:00→13:00)
[2020-03-02] MEDS ORDERED: morphine INJ 10 MG/ML 1ML (SYR OR VIAL) IVP PRN ×2 (11:00)
[2020-03-02] MEDS ORDERED: ACETAMINOPHEN 325 MG TABLET PO PRN (11:00)
[2020-03-02] MEDS ORDERED: HYDROcodone/APAP 5 MG/325 MG (LORTAB) TAB PO ONE (11:00)
[2020-03-02] MEDS ORDERED: ONDANSETRON 4 MG/2 ML (SDV) Z0FRAN IV ONE (11:15)
[2020-03-02] MEDS ORDERED: FAMOTIDINE 20MG/2ML IV (PEPCID) IV ONE (11:15)
[2020-03-02] MEDS ORDERED: BUP/EPI 0.5% 1:200,000 (SENSORCAINE) 30 ML VIAL ONE (11:37)
[2020-03-02] MEDS ORDERED: GLYCOPYRROLATE 0.2 MG/ML (ROBINUL) 2 ML VIAL ONE (11:41)
[2020-03-02] MEDS ORDERED: ROCURONIUM 10 MG/ML 5 ML SYRINGE IV ONE (11:41)
[2020-03-02] MEDS ORDERED: proPOfol 200 MG/20 ML (DIPRIVAN) VIAL IV ONE (11:41)
[2020-03-02] MEDS ORDERED: NEOSTIGMINE 3 MG/3 ML VIAL ONE (11:41)
[2020-03-02] MEDS ORDERED: ONDANSETRON 4 MG/2 ML (SDV) Z0FRAN ONE (11:41)
[2020-03-02] MEDS ORDERED: SEVOFLURANE (ULTANE) 15 ML INHAL SOLN ONE (11:41)
[2020-03-02] MEDS ORDERED: LIDOCAINE PF 2% 5 ML (XYLOCAINE) VIAL ONE (11:41)
[2020-03-02] MEDS ORDERED: MIDAZOLAM 2 MG/2 ML (VERSED) VIAL ONE (11:43)
[2020-03-02] MEDS ORDERED: fentaNYL INJECTION 100 MCG/2 ML AMP ONE (11:43)
[2020-03-02] MEDS ORDERED: morphine INJ 10 MG/ML 1ML (SYR OR VIAL) IVP ONE (13:00)
[2020-03-02] MEDS ORDERED: MEPERIDINE (DEMEROL) INJ 50 MG/ML IVP ONE (13:00)
[2020-03-02] MEDS ORDERED: fentaNYL INJECTION 100 MCG/2 ML AMP IVP ONE (13:00)
[2020-03-02] MEDS ORDERED: HYDROcodone/APAP 5 MG/325 MG (LORTAB) TAB ONE (13:53)
--- NOTE | 2020-03-02 14:33 | Anesthesia-General Post-Op ---
General Patient Condition Mental Status/LOC: Same as Preop Cardiovascular: Satisfactory Nausea/Vomiting: Absent Respiratory: Satisfactory Pain: Controlled Complications: Absent Post Op Complications Complications None Follow Up Care/Instructions Patient Instructions None needed. Anesthesia/Patient Condition Patient Condition Patient is doing well, no complaints, stable vital signs, no apparent adverse anesthesia problems. No complications reported per nursing. SHERIE LEGER CRNA Mar 02, 2020 14:32
--- NOTE | 2020-03-02 15:08 | OPERATIVE REPORT ---
DATE OF SERVICE: 03/02/2020 PREOPERATIVE DIAGNOSIS: Symptomatic biliary dyskinesia. POSTOPERATIVE DIAGNOSIS: Symptomatic biliary dyskinesia. PROCEDURE: Laparoscopic cholecystectomy. SURGEON: Alireza Prajapati MD. OIL SCOUT: Kervin Roberts APRN. ANESTHESIA: General endotracheal. ESTIMATED BLOOD LOSS: Minimal. FINDINGS: Biliary sludge. DISPOSITION: The patient tolerated the procedure well. INDICATIONS: The patient is a 60-year-old female who has had issues with upper gastrointestinal issues for the past several years. We had done an EGD on her in 2017, and she was found to have a reflux esophagitis as well as a mild gastritis; however, no other abnormalities. She also underwent a gallbladder workup at that time and she was found to have a low normal ejection fraction at that time; however, she did have reproduction of symptoms. At that time, she wanted to wait to proceed with surgery. Over time, she has developed recurrent and worsening episodes of pain in the right upper abdominal quadrant usually after eating meals. She also reports abdominal distention and bloating sensation. DESCRIPTION OF PROCEDURE: The patient was brought to the operating room, laid supine on the table. After adequate IV pain and sedative medications and general endotracheal intubation, the abdomen was prepped and draped in standard surgical fashion. A 0.5% Marcaine with epinephrine was used to anesthetize overlying skin in the left upper abdominal quadrant and a transverse skin incision made using 15 blade. An 0 silk suture was applied to the medial aspect of incision for retraction and a Veress needle inserted with a low opening pressure of 0 mmHg and the abdomen was then insufflated to 15 mmHg pressure. The Veress needle removed and a 5 mm XL trocar placed followed by a 5 mm 45-degree angle laparoscope visualizing the peritoneal cavity. A 4-quadrant abdominal exploration was performed. Was visualized of the gallbladder, liver, omentum and stomach appeared normal. Under direct visualization, we then proceeded to place a supraumbilical 10 mm port after the skin and peritoneal lining were anesthetized using 0.5% Marcaine with epinephrine and a transverse skin incision made using a 15 blade. In a similar manner, a right upper abdominal quadrant 5 mm port was placed. The patient was then placed in reverse Trendelenburg position as well as plane right side up, left side down. The fundus of the gallbladder was then retracted anteriorly and superiorly. The hepatoduodenal ligament was then opened using blunt dissection as well as electrocautery on the hook instrument. The entire critical view of safety was identified including the triangle of Calot as well as the cystic duct and artery as only two structures going into the gallbladder as well as the cystic plate behind the proximal gallbladder. A timeout was then taken and the cystic duct and artery were then clipped proximally, distally and cut with EndoShears. The gallbladder was then dissected off the liver bed using cautery on the hook instrument with visualization of good hemostasis as well as no leaking ducts of Luschka. The gallbladder was removed through the 10 mm port site using an EndoCatch bag. The 10 mm port site fascia and peritoneum were then closed under direct visualization using a Manuel-Jessika device and 0 Vicryl suture. The abdomen was desufflated and remaining ports removed. All skin incisions were closed using 4-0 Monocryl running subcuticular sutures. Wounds were then cleaned and covered with Dermabond. The patient tolerated the procedure well. We will start IV normal pain medication as well as a clear liquid diet. When she is tolerating clears, has good pain control with oral pain medications, ambulating well, we will discharge her home. She will be instructed to do no heavy lifting or exertion for the next two weeks. Job ID: [id number] DocumentID: [id number] Dictated Date: 03/02/2020 12:43:50 Exhibition Designer Date: 03/02/2020 15:07:23 Dictated By: ALIREZA PRAJAPATI MD
[2020-03-05] MEDS ORDERED: REMOVAL TP ONE (10:00)
== END 2020-03-02 16:30 | disposition home or self-care (01) ==
LOC: SDC 09:48
PROVIDERS: ATTEND Surgery
DX: K81.1 Chronic cholecystitis (principal); K82.8 Other specified diseases of gallbladder; K21.0 Gastro-esophageal reflux disease with esophagitis; K44.9 Diaphragmatic hernia without obstruction or gangrene; E03.9 Hypothyroidism, unspecified; Z79.899 Other long term (current) drug therapy; Z90.710 Acquired absence of both cervix and uterus; Z80.0 Family history of malignant neoplasm of digestive organs
CPT/HCPCS: 36415; 85025; 87081; 88304